=== PATIENT | female | born 1995 | race Caucasian/White ===

== ENCOUNTER 2018-10-10 12:19 | Emergency (ER) | payer OTHER ==
[~2018-10-10] VITALS: Ht 157.5 cm; Wt 79.4 kg
[~2018-10-10 12:19] MED LIST: ERYTHROMYCIN E3.5 G1 OPHTHALMIC
[2018-10-10] MEDS ORDERED: TRAMADOL 50 MG50 MG PO (12:53)
[2018-10-10] MEDS ORDERED: IBUPROFEN 600600 M1 PO (12:53)
[2018-10-10 13:15] VITALS: BP 120/75
== END 2018-10-10 13:16 | disposition home or self-care (01) ==
LOC: ER 12:19
DX: T24.232A Burn of second degree of left lower leg, initial encounter (principal); T24.231A Burn of second degree of right lower leg, initial encounter; T31.0 Burns involving less than 10% of body surface; F17.210 Nicotine dependence, cigarettes, uncomplicated; W90.2XXA Exposure to laser radiation, initial encounter